=== PATIENT | male | born 1935 | race Caucasian/White ===

== ENCOUNTER 2023-11-29 08:33 | Emergency (ER) | payer MEDICARE ==
[2023-11-29 09:50] LABS: #Basophils 0.04 10x3/uL (0.0-0.2); %Basophils 0.3 % (0.0-1.0); %Eosinophils 2.6 % (0.0-10.0); %Lymphocytes 10.9 % (21.0-51.0); %Monocytes 6.7 % (0.0-10.0); %Neutrophils 78.9 % (42.0-75.0); Hematocrit 35.6 % (42.0-52.0); Mean Corpuscular HGB CONC 33.7 g/dL (32.0-36.0); Mean Corpuscular Hemoglobin 29.3 pg (27.0-31.0); Mean Platelet Volume 9.6 fL (7.4-10.4); Platelet Count 329 10x3/uL (130-400); RBC Distribution Width 13.9 % (11.5-14.5); Red Blood Cell (RBC) Count 4.09 mill/uL (4.70-6.10)
[2023-11-29 10:05] LABS: ALT (SGPT) 29 U/L (8-55); AST (SGOT) 55 U/L (5-34); Albumin 2.7 g/dL (3.4-4.8); Alkaline Phosphatase 143 U/L (40-110); Anion Gap 17 mmol/L (10-20); BUN (Urea Nitrogen) 16 mg/dL (8.4-25.7); Bilirubin, Total 0.6 mg/dL (0.2-1.2); Calc. Creatinine Clearance 0 mL/min (70-130); Carbon Dioxide 22 mmol/L (23-31); Chloride 100 mmol/L (98-107); Estimated GFR 47; Globulin 4.6 g/dL (2.4-3.5); Glucose 218 mg/dL (83-110); Potassium 4.3 mmol/L (3.5-5.1); Protein, Total 7.3 g/dL (5.8-8.1); Sodium 135 mmol/L (136-145)
[2023-11-29 10:09] LABS: Troponin I 0.017 ng/mL (< 0.028)
[2023-11-29] MEDS ORDERED: Ondansetron PF 4 MG/2 ML Vial ONE (10:46)
[2023-11-29 11:41] LABS: Bacteria/HPF Rare-Few HPF (None Seen); Bilirubin Negative (Negative); Blood, Urine Negative (Negative); CAUTI Indications for Culture Alt mental st,lethar; Clarity Clear (Clear); Glucose, Urine (Dipstick) Normal (Negative); Ketone, Urine Negative (Negative); Leukocyte 75 Leu/uL (Negative); Nitrite Negative (Negative); Protein, Urine (Dipstick) 20 mg/dL (Neg-Trace); RBC/HPF 0-3 HPF (0-3); Specific Gravity, Urine 1.015 (1.002-1.036); Squamous Epithelial 0-3 HPF (0-3); Urobilinogen Normal mg/dL (Less than 2); pH, Urine 5.5 (5.0-9.0)
[2023-11-29 11:42] LABS: Urine Culture Reflex No No
[2023-11-29] MEDS ORDERED: Iopamidol-370 76% 500 ML MDV (1 ML CHARGE) ONE (12:16)
== END 2023-11-29 13:39 | disposition home or self-care (01) ==
LOC: ERS 08:33
DX: C18.9 Malignant neoplasm of colon, unspecified (principal); Z55.6 Problems related to health literacy
CPT/HCPCS: 74177; 80053; 81001; 82550; 83690; 84484; 85025; 93005; J2405; Q9967; 96374

== ENCOUNTER 2023-12-18 08:15 | Day surgery (SDC) | payer MEDICARE, OTHER ==
[2023-12-18 09:00] LABS: INR-International Normal Ratio 1.1; Prothrombin Time 13.9 sec (12.0-14.7)
[2023-12-18 09:01] LABS: PTT 30.3 sec (22.9-36.1)
[2023-12-18 09:40] VITALS: BP 210/95; TEMP 97.2
[2023-12-18] MEDS ORDERED: fentaNYL 50 mcg/mL 1 mL Vial ONE (09:47)
[2023-12-18] MEDS ORDERED: Lidocaine 1% w/Epinephrine 1:100K 20 ML VIAL ONE (09:47)
[2023-12-18] MEDS ORDERED: Midazolam HCl 2 mg/2 ml Vial ONE (09:47)
[2023-12-18] MEDS ORDERED: Lidocaine 1% PF 5 ML VIAL ONE (09:47)
[2023-12-18] MEDS ORDERED: Sodium Bicarbonate 2.5 MEQ/5 ML SDV ONE (09:47)
== END 2023-12-18 13:00 | disposition home or self-care (01) ==
LOC: CT 08:15
PROVIDERS: ATTEND Internal Medicine Hematology & Oncology
PROC: 0F923ZX Drainage of Left Lobe Liver, Percutaneous Approach, Diagnostic (ICD-10-PCS; principal; 2023-12-18)
DX: C18.6 Malignant neoplasm of descending colon (principal); C78.7 Secondary malignant neoplasm of liver and intrahepatic bile duct
CPT/HCPCS: 47000; 77012; 85610; 85730; 88333; 88334; J2250; J3010; 81479; 88307; 88341; 88342; 88361; 88377; 99152; 99153

== ENCOUNTER 2024-01-08 08:35 | Outpatient (CLI) | payer MEDICARE | END 2024-01-08 08:36 | disposition home or self-care (01) | LOC: CT 08:35 | PROVIDERS: ATTEND Internal Medicine Hematology & Oncology | DX: C18.6 Malignant neoplasm of descending colon (principal); C78.7 Secondary malignant neoplasm of liver and intrahepatic bile duct; J98.4 Other disorders of lung | CPT/HCPCS: 71260 ==

== ENCOUNTER 2024-01-09 06:46 | Day surgery (SDC) | payer MEDICARE ==
[2024-01-08 10:17] VITALS: BMI 20.6
[2024-01-09] MEDS ORDERED: EPINEPHrine 1 MG/ML VIAL ONE (08:02)
[2024-01-09] MEDS ORDERED: Bupivacaine 0.25% HCL 30 ML VIAL ONE (08:02)
[2024-01-09] MEDS ORDERED: Lidocaine 1% PF 5 ML VIAL ONE (08:23)
[2024-01-09] MEDS ORDERED: PROPOFOL 20 ML ONE (08:23)
[2024-01-09 08:25] LABS: #Basophils 0.07 10x3/uL (0.0-0.2); %Basophils 0.5 % (0.0-1.0); %Eosinophils 0.8 % (0.0-10.0); %Lymphocytes 11.3 % (21.0-51.0); %Monocytes 5.8 % (0.0-10.0); %Neutrophils 80.9 % (42.0-75.0); Hemoglobin 11.5 g/dL (14.0-18.0); Mean Corpuscular HGB CONC 32.9 g/dL (32.0-36.0); Mean Corpuscular Hemoglobin 28.8 pg (27.0-31.0); Mean Corpuscular Volume 87.7 fL (78.0-98.0); Platelet Count 519 10x3/uL (130-400); RBC Distribution Width 13.7 % (11.5-14.5); Red Blood Cell (RBC) Count 3.99 mill/uL (4.70-6.10)
[2024-01-09 08:43] LABS: Anion Gap 15 mmol/L (10-20); BUN (Urea Nitrogen) 10 mg/dL (8.4-25.7); Calc. Creatinine Clearance 40 mL/min (70-130); Calcium 9.3 mg/dL (7.8-10.44); Carbon Dioxide 21 mmol/L (23-31); Chloride 106 mmol/L (98-107); Estimated GFR 58; Glucose 123 mg/dL (83-110); Potassium 4.1 mmol/L (3.5-5.1); Sodium 138 mmol/L (136-145)
[2024-01-09] MEDS ORDERED: CEFAZOLIN 2 GM VIAL ONE (09:07)
[2024-01-09] MEDS ORDERED: Sodium Chloride 0.9% 100 ML ONE (09:08)
[2024-01-09] MEDS ORDERED: fentaNYL PF 100 MCG/2 ML SYRINGE ONE (09:15)
[2024-01-09] MEDS ORDERED: PHENYLEPHRINE-NS 100 MCG/ML 10 ML SYRINGE ONE (09:33)
[2024-01-09] MEDS ORDERED: Ondansetron PF 4 MG/2 ML Vial ONE (09:54)
== END 2024-01-09 11:30 | disposition home or self-care (01) ==
LOC: SDC 06:46
PROVIDERS: ATTEND Surgery
PROC: 0HB1XZZ Excision of Face Skin, External Approach (ICD-10-PCS; principal; 2024-01-09)
DX: C44.309 Unspecified malignant neoplasm of skin of other parts of face (principal); C18.9 Malignant neoplasm of colon, unspecified; C79.9 Secondary malignant neoplasm of unspecified site
CPT/HCPCS: 11642; 13132; 36561; 71045; 80048; 85025; 93005; C1788; J0171; J0665; J1642; J2405; J2704; J3490; 88305; 93010

== ENCOUNTER 2024-04-09 07:31 | Outpatient (CLI) | payer MEDICARE | END 2024-04-09 07:32 | disposition home or self-care (01) | LOC: CT 07:31 | PROVIDERS: ATTEND Internal Medicine Hematology & Oncology | DX: C18.6 Malignant neoplasm of descending colon (principal); K76.9 Liver disease, unspecified; N40.0 Benign prostatic hyperplasia without lower urinary tract symptoms; N32.9 Bladder disorder, unspecified | CPT/HCPCS: 71260; 74177 ==

== ENCOUNTER 2024-05-06 10:33 | Inpatient (IN) | payer MEDICARE ==
[2024-05-06 11:25] LABS: Hematocrit 31.3 % (42.0-52.0); Hemoglobin 10.1 g/dL (14.0-18.0); Mean Corpuscular HGB CONC 32.3 g/dL (32.0-36.0); Mean Corpuscular Hemoglobin 28.9 pg (27.0-31.0); Mean Corpuscular Volume 89.7 fL (78.0-98.0); Mean Platelet Volume 10.7 fL (7.4-10.4); Platelet Count 78 10x3/uL (130-400); RBC Distribution Width 18.5 % (11.5-14.5); Red Blood Cell (RBC) Count 3.49 mill/uL (4.70-6.10)
[2024-05-06 11:34] LABS: ALT (SGPT) 67 U/L (8-55); AST (SGOT) 96 U/L (5-34); Albumin 2.3 g/dL (3.4-4.8); Alkaline Phosphatase 230 U/L (40-110); Anion Gap 21 mmol/L (10-20); BUN (Urea Nitrogen) 66 mg/dL (8.4-25.7); Bilirubin, Total 3.3 mg/dL (0.2-1.2); CK (CPK) 1293 U/L (30-200); Calc. Creatinine Clearance 0 mL/min (70-130); Calcium 7.8 mg/dL (7.8-10.44); Carbon Dioxide 15 mmol/L (23-31); Chloride 118 mmol/L (98-107); Estimated GFR 28; Globulin 2.6 g/dL (2.4-3.5); Glucose 236 mg/dL (83-110); Protein, Total 4.9 g/dL (5.8-8.1); Sodium 150 mmol/L (136-145)
[2024-05-06 11:35] LABS: INR-International Normal Ratio 2.6; Prothrombin Time 27.9 sec (12.0-14.7)
[2024-05-06 11:36] LABS: PTT 30.9 sec (22.9-36.1)
[2024-05-06 12:20] LABS: Band 19 % (5-11); Burr Cells SLIGHT = 2-5 cells HPF (0-1); Dohle Bodies SLIGHT; Giant Platelets 0.9 % (0-5); Large Platelets 7.2 % (0-5); Lymphocytes 8 % (21-51); Metamyelocyte 5 % (0-0); Monocytes 9 % (0-10); Myelocyte 2 % (0-0); Neutrophil 55 % (42-75); Nucleated RBC (Manual Ct) 1 % (0); Platelet Adequacy Comment Platelets Decreased; Polychromasia SLIGHT = 2-3 cells HPF (0-2); Promyelocytes 1 % (0-0); Toxic Granulation MODERATE
[2024-05-06] MEDS ORDERED: cefTRIAXone (ROCEPHIN) 2 GM VIAL ONE (12:25)
[2024-05-06] MEDS ORDERED: Sodium Chloride 0.9% 100 ML ONE (12:25)
[2024-05-06 12:31] LABS: Bacteria/HPF None Seen HPF (None Seen); Bilirubin 1+ (Negative); Blood, Urine 3+ (Negative); CAUTI Indications for Culture Alt mental st,lethar; Clarity Turbid (Clear); Glucose, Urine (Dipstick) 100 mg/dL (Negative); Ketone, Urine 10 mg/dL (Negative); Leukocyte Negative Leu/uL (Negative); Nitrite Negative (Negative); Protein, Urine (Dipstick) 50 mg/dL (Neg-Trace); RBC/HPF 0-3 HPF (0-3); Specific Gravity, Urine 1.022 (1.002-1.036); Squamous Epithelial 0-3 HPF (0-3); Urobilinogen Normal mg/dL (Less than 2); pH, Urine 5.5 (5.0-9.0)
[2024-05-06 12:39] LABS: Urine Culture Reflex No No
[2024-05-06 14:52] LABS: Lactic Acid 4.96 mmol/L (0.5-2.2)
[2024-05-06] MEDS ORDERED: Bisacodyl 5 MG TAB PO PRN (15:12)
[2024-05-06] MEDS ORDERED: Acetaminophen 325 MG TAB PO PRN (15:12)
[2024-05-06] MEDS ORDERED: Senokot S 8.6-50 MG TAB PO PRN (15:12)
[2024-05-06] MEDS ORDERED: Acetaminophen 650 MG Suppository PR PRN (15:12)
[2024-05-06] MEDS ORDERED: Ondansetron ODT 4 MG TAB PO PRN (15:12)
[2024-05-06] MEDS ORDERED: Ondansetron PF 4 MG/2 ML Vial IVP PRN (15:12)
[2024-05-06] MEDS ORDERED: Dextrose 5% in Water 1,000 ML IV SCH (15:15)
[2024-05-06] MEDS ORDERED: Vancomycin Dose by Levels Sliding Scale (Wt <71) FS SCH (15:30)
[2024-05-06] MEDS ORDERED: Vancomycin 1 GM/200 ML (FROZEN) BAG ONE (16:52)
[2024-05-06] MEDS: Vancomycin 1 GM in Premix 1 BAG IVPB SCH (17:11)
[2024-05-06 18:34] VITALS: BMI 16.6
[2024-05-06] MEDS: Cefepime 1 GM in Sodium Chloride 0.9% 100 ML IVPB SCH ×2 (18:48→20:50)
[2024-05-06 19:55] LABS: Magnesium 2.3 mg/dL (1.6-2.6)
[2024-05-06] MEDS: Famotidine/PF 20 mg/2ml Vial SLOW IVP SCH (20:51)
[2024-05-06] MEDS: Sodium Chloride 0.45% 1,000 ML IV SCH (20:51)
[2024-05-06] MEDS ORDERED: Vancomycin 1 GM in Sodium Chloride 0.9% 250 ML 300 ML IVPB SCH (21:00)
[2024-05-06 22:19] LABS: Anion Gap 25 mmol/L (10-20); BUN (Urea Nitrogen) 73 mg/dL (8.4-25.7); Calc. Creatinine Clearance 18 mL/min (70-130); Carbon Dioxide 10 mmol/L (23-31); Chloride 122 mmol/L (98-107); Estimated GFR 28; Glucose 195 mg/dL (83-110); Potassium 3.7 mmol/L (3.5-5.1); Sodium 153 mmol/L (136-145)
[2024-05-07] MEDS: Sodium Bicarb 50 MEQ/50 ML Abboject 8.4% SYRINGE IVP SCH (00:58)
[2024-05-07] MEDS: Sodium Bicarb 50 mEq/50 ML VIAL IVP SCH ×2 (00:58→01:09)
[2024-05-07 01:15] LABS: Lactic Acid 2.28 mmol/L (0.5-2.2)
[2024-05-07 03:51] LABS: Hematocrit 28.6 % (42.0-52.0); Hemoglobin 9.5 g/dL (14.0-18.0); Mean Corpuscular HGB CONC 33.2 g/dL (32.0-36.0); Mean Corpuscular Hemoglobin 28.7 pg (27.0-31.0); Mean Corpuscular Volume 86.4 fL (78.0-98.0); Platelet Count 53 10x3/uL (130-400); RBC Distribution Width 18.1 % (11.5-14.5); Red Blood Cell (RBC) Count 3.31 mill/uL (4.70-6.10)
[2024-05-07 04:06] LABS: ALT (SGPT) 58 U/L (8-55); AST (SGOT) 70 U/L (5-34); Alkaline Phosphatase 177 U/L (40-110); Anion Gap 15 mmol/L (10-20); BUN (Urea Nitrogen) 67 mg/dL (8.4-25.7); Bilirubin, Total 2.4 mg/dL (0.2-1.2); CK (CPK) 640 U/L (30-200); Calc. Creatinine Clearance 22 mL/min (70-130); Calcium 7.3 mg/dL (7.8-10.44); Carbon Dioxide 20 mmol/L (23-31); Chloride 121 mmol/L (98-107); Estimated GFR 37; Globulin 2.4 g/dL (2.4-3.5); Glucose 180 mg/dL (83-110); Potassium 3.1 mmol/L (3.5-5.1); Protein, Total 4.4 g/dL (5.8-8.1); Sodium 153 mmol/L (136-145)
[2024-05-07 04:37] LABS: Anisocytosis SLIGHT = 6-15 cells HPF (0-5); Band 16 % (5-11); Burr Cells SLIGHT = 2-5 cells HPF (0-1); Dohle Bodies SLIGHT; Elliptocytes SLIGHT = 2-5 cells HPF (0-1); Large Platelets 4.7 % (0-5); Lymphocytes 4 % (21-51); Metamyelocyte 4 % (0-0); Microcytosis SLIGHT = 6-15 cells HPF (0-5); Monocytes 16 % (0-10); Myelocyte 2 % (0-0); Neutrophil 59 % (42-75); Nucleated RBC (Manual Ct) 1 % (0); Platelet Adequacy Comment Platelets Decreased; Poikilocytosis SLIGHT = 6-15 cells HPF (0-5); Polychromasia SLIGHT = 2-3 cells HPF (0-2); Target Cells SLIGHT = 2-5 cells HPF (0-1); Toxic Granulation MODERATE
[2024-05-07 09:41] VITALS: BMI 16.6
[2024-05-07] MEDS: Sodium Chloride 0.45% 1,000 ML IV SCH (10:06)
[2024-05-07] MEDS: Potassium Chloride 20 MEQ TAB PO SCH (10:07)
[2024-05-07 12:38] LABS: Vancomycin, Trough 10.3 ug/mL
[2024-05-07 13:20] LABS: Campy jejuni + coli by PCR Negative (Negative); STEC Shiga Toxin 1+2 Negative (Negative); Salmonella spp. by PCR Negative (Negative); Shigella spp + EIEC by PCR Negative (Negative)
[2024-05-07] MEDS: Vancomycin HCl 750 MG in Sodium Chloride 0.9% 250 ML 250 ML IVPB SCH (14:20)
[2024-05-07 16:43] LABS: Anion Gap 14 mmol/L (10-20); BUN (Urea Nitrogen) 62 mg/dL (8.4-25.7); Calc. Creatinine Clearance 24 mL/min (70-130); Calcium 7.4 mg/dL (7.8-10.44); Carbon Dioxide 19 mmol/L (23-31); Chloride 124 mmol/L (98-107); Estimated GFR 41; Glucose 147 mg/dL (83-110); Potassium 3.2 mmol/L (3.5-5.1); Sodium 154 mmol/L (136-145)
[2024-05-07] MEDS: Dextrose 5% w/ 20 mEq KCl 1,000 ML IV SCH (17:28)
[2024-05-07] MEDS: Famotidine/PF 20 mg/2ml Vial SLOW IVP SCH (20:17)
[2024-05-08 05:38] LABS: ALT (SGPT) 72 U/L (8-55); AST (SGOT) 92 U/L (5-34); Albumin 1.9 g/dL (3.4-4.8); Alkaline Phosphatase 188 U/L (40-110); Anion Gap 12 mmol/L (10-20); BUN (Urea Nitrogen) 51 mg/dL (8.4-25.7); Bilirubin, Total 2.3 mg/dL (0.2-1.2); CK (CPK) 719 U/L (30-200); Calc. Creatinine Clearance 25 mL/min (70-130); Calcium 7.4 mg/dL (7.8-10.44); Carbon Dioxide 18 mmol/L (23-31); Chloride 119 mmol/L (98-107); Estimated GFR 43; Globulin 2.3 g/dL (2.4-3.5); Glucose 194 mg/dL (83-110); Potassium 3.1 mmol/L (3.5-5.1); Protein, Total 4.2 g/dL (5.8-8.1); Sodium 146 mmol/L (136-145)
[2024-05-08 06:59] LABS: Anisocytosis SLIGHT = 6-15 cells HPF (0-5); Band 12 % (5-11); Hypochromia SLIGHT = 6-15 cells HPF (0-5); Lymphocytes 3 % (21-51); Macrocytosis SLIGHT = 6-15 cells HPF (0-5); Monocytes 2 % (0-10); Neutrophil 83 % (42-75); Platelet Adequacy Comment Platelets Decreased; Polychromasia SLIGHT = 2-3 cells HPF (0-2); Smudge Cells 6.1 %
[2024-05-08 07:03] LABS: Hematocrit 26.9 % (42.0-52.0); Hemoglobin 8.9 g/dL (14.0-18.0); Mean Corpuscular HGB CONC 33.3 g/dL (32.0-36.0); Mean Corpuscular Hemoglobin 29.3 pg (27.0-31.0); Mean Corpuscular Volume 87.8 fL (78.0-98.0); Platelet Count 37 10x3/uL (130-400); RBC Distribution Width 18.4 % (11.5-14.5); Red Blood Cell (RBC) Count 3.04 mill/uL (4.70-6.10)
[2024-05-08] MEDS: Bacitracin 1 PK TOP SCH (09:44)
[2024-05-08] MEDS: Megestrol Acetate 800 MG/20 ML UDCUP PO SCH (09:45)
[2024-05-08 10:37] LABS: Vancomycin, Trough 12.5 ug/mL
[2024-05-08] MEDS: Vancomycin HCl 750 MG in Sodium Chloride 0.9% 250 ML 250 ML IVPB SCH (12:11)
[2024-05-08] MEDS: Potassium Chloride 20 MEQ TAB PO SCH (12:11)
[2024-05-08] MEDS: Albumin 25% 25 GM (100 mL) BOT IVPB SCH (12:11)
[2024-05-09] MEDS: Potassium Chloride 20 MEQ in Dextrose 5% in Water 1,000 ML IV SCH (00:34)
[2024-05-09 05:52] LABS: Hematocrit 22.7 % (42.0-52.0); Hemoglobin 7.5 g/dL (14.0-18.0); Mean Corpuscular Hemoglobin 29.8 pg (27.0-31.0); Mean Corpuscular Volume 90.1 fL (78.0-98.0); Platelet Count 25 10x3/uL (130-400); RBC Distribution Width 19.2 % (11.5-14.5); Red Blood Cell (RBC) Count 2.52 mill/uL (4.70-6.10)
[2024-05-09 06:17] LABS: Anisocytosis SLIGHT = 6-15 cells HPF (0-5); Band 5 % (5-11); Hypochromia SLIGHT = 6-15 cells HPF (0-5); Lymphocytes 7 % (21-51); Monocytes 5 % (0-10); Myelocyte 2 % (0-0); Neutrophil 79 % (42-75); Nucleated RBC (Manual Ct) 1 % (0); Platelet Adequacy Comment Platelets Decreased; Polychromasia SLIGHT = 2-3 cells HPF (0-2); Promyelocytes 1 % (0-0); Tear Drops SLIGHT = 2-5 cells HPF (0-1); Toxic Granulation SLIGHT
[2024-05-09 06:20] LABS: Anion Gap 11 mmol/L (10-20); BUN (Urea Nitrogen) 31 mg/dL (8.4-25.7); Calc. Creatinine Clearance 33 mL/min (70-130); Carbon Dioxide 17 mmol/L (23-31); Chloride 121 mmol/L (98-107); Estimated GFR 60; Glucose 161 mg/dL (83-110); Potassium 2.7 mmol/L (3.5-5.1); Sodium 146 mmol/L (136-145)
[2024-05-09 09:50] LABS: Vancomycin, Trough 11.2 ug/mL
[2024-05-09] MEDS: Vancomycin HCl 500 MG in Sodium Chloride 0.9% 100 ML IV SCH (14:21)
[2024-05-09] MEDS: Potassium Chloride 20 MEQ TAB PO SCH ×2 (14:27→14:50)
[2024-05-09] MEDS: Potassium Chloride 40 MEQ in Dextrose 5% in Water 1,000 ML IV SCH (15:47)
[2024-05-09] MEDS: Potassium Bicarbonate/Cit Ac 20 MEQ TAB PER TUBE SCH (15:49)
[2024-05-10 05:30] LABS: Hematocrit 27.3 % (42.0-52.0); Hemoglobin 8.6 g/dL (14.0-18.0); Mean Corpuscular HGB CONC 31.5 g/dL (32.0-36.0); Mean Corpuscular Hemoglobin 29.2 pg (27.0-31.0); Mean Corpuscular Volume 92.5 fL (78.0-98.0); Platelet Count 44 10x3/uL (130-400); RBC Distribution Width 20.5 % (11.5-14.5); Red Blood Cell (RBC) Count 2.95 mill/uL (4.70-6.10)
[2024-05-10 05:31] LABS: ALT (SGPT) 59 U/L (8-55); AST (SGOT) 58 U/L (5-34); Albumin 3.1 g/dL (3.4-4.8); Alkaline Phosphatase 149 U/L (40-110); Anion Gap 14 mmol/L (10-20); BUN (Urea Nitrogen) 22 mg/dL (8.4-25.7); Bilirubin, Total 2.3 mg/dL (0.2-1.2); Calc. Creatinine Clearance 39 mL/min (70-130); Calcium 8.3 mg/dL (7.8-10.44); Carbon Dioxide 10 mmol/L (23-31); Chloride 127 mmol/L (98-107); Estimated GFR 73; Globulin 1.8 g/dL (2.4-3.5); Glucose 138 mg/dL (83-110); Potassium 3.1 mmol/L (3.5-5.1); Protein, Total 4.9 g/dL (5.8-8.1); Sodium 148 mmol/L (136-145)
[2024-05-10 06:39] LABS: Anisocytosis SLIGHT = 6-15 cells HPF (0-5); Band 2 % (5-11); Lymphocytes 6 % (21-51); Macrocytosis SLIGHT = 6-15 cells HPF (0-5); Monocytes 3 % (0-10); Neutrophil 89 % (42-75); Nucleated RBC (Manual Ct) 1 % (0); Platelet Adequacy Comment Platelets Decreased; Polychromasia SLIGHT = 2-3 cells HPF (0-2); Smudge Cells 2.9 %
[2024-05-10] MEDS ORDERED: Dextrose 5% in Water 1,000 ML IV SCH (13:45)
[2024-05-10] MEDS: SODIUM BICARBONATE IV SCH (14:02)
[2024-05-10] MEDS: WATER IV SCH (14:02)
[2024-05-10] MEDS: DEXTROSE 5% IV SCH (14:02)
[2024-05-10] MEDS: POTASSIUM CHLORIDE IV SCH (14:02)
[2024-05-11 05:52] LABS: Anion Gap 13 mmol/L (10-20); BUN (Urea Nitrogen) 22 mg/dL (8.4-25.7); Calc. Creatinine Clearance 34 mL/min (70-130); Calcium 8.6 mg/dL (7.8-10.44); Carbon Dioxide 12 mmol/L (23-31); Chloride 128 mmol/L (98-107); Estimated GFR 63; Glucose 222 mg/dL (83-110); Potassium 3.3 mmol/L (3.5-5.1); Sodium 150 mmol/L (136-145)
[2024-05-11 05:53] LABS: Hematocrit 27.7 % (42.0-52.0); Hemoglobin 8.7 g/dL (14.0-18.0); Mean Corpuscular HGB CONC 31.4 g/dL (32.0-36.0); Mean Corpuscular Hemoglobin 29.1 pg (27.0-31.0); Mean Corpuscular Volume 92.6 fL (78.0-98.0); Platelet Count 54 10x3/uL (130-400); RBC Distribution Width 21.2 % (11.5-14.5); Red Blood Cell (RBC) Count 2.99 mill/uL (4.70-6.10)
[2024-05-11 06:43] LABS: Anisocytosis SLIGHT = 6-15 cells HPF (0-5); Band 1 % (5-11); Lymphocytes 1 % (21-51); Monocytes 4 % (0-10); Neutrophil 94 % (42-75); Platelet Adequacy Comment Platelets Decreased; Polychromasia SLIGHT = 2-3 cells HPF (0-2); Schistocytes SLIGHT = 2-5 cells HPF (0-1); Tear Drops SLIGHT = 2-5 cells HPF (0-1)
[2024-05-11] MEDS ORDERED: Potassium Chloride 40 MEQ in Dextrose 5% in Water 1,000 ML IV SCH (09:00)
[2024-05-11] MEDS: WATER IV SCH (09:38)
[2024-05-11] MEDS: DEXTROSE 5% IV SCH (09:38)
[2024-05-11] MEDS: POTASSIUM CHLORIDE IV SCH (09:38)
[2024-05-11] MEDS: SODIUM BICARBONATE IV SCH (09:38)
[2024-05-12 05:49] LABS: Anion Gap 8 mmol/L (10-20); BUN (Urea Nitrogen) 22 mg/dL (8.4-25.7); Calc. Creatinine Clearance 32 mL/min (70-130); Calcium 7.9 mg/dL (7.8-10.44); Carbon Dioxide 17 mmol/L (23-31); Chloride 127 mmol/L (98-107); Estimated GFR 59; Glucose 210 mg/dL (83-110); Magnesium 1.8 mg/dL (1.6-2.6); Potassium 4.4 mmol/L (3.5-5.1); Sodium 148 mmol/L (136-145)
[2024-05-12 05:52] LABS: Phosphorus 1.5 mg/dL (2.3-4.7)
[2024-05-12 06:16] LABS: Hematocrit 25.1 % (42.0-52.0); Hemoglobin 8.2 g/dL (14.0-18.0); Mean Corpuscular HGB CONC 32.7 g/dL (32.0-36.0); Mean Corpuscular Hemoglobin 29.6 pg (27.0-31.0); Mean Corpuscular Volume 90.6 fL (78.0-98.0); Platelet Count 64 10x3/uL (130-400); RBC Distribution Width 22.2 % (11.5-14.5); Red Blood Cell (RBC) Count 2.77 mill/uL (4.70-6.10)
[2024-05-12 06:53] LABS: Anisocytosis SLIGHT = 6-15 cells HPF (0-5); Band 11 % (5-11); Eosinophils 1 % (0-10); Hypochromia SLIGHT = 6-15 cells HPF (0-5); Lymphocytes 10 % (21-51); Monocytes 3 % (0-10); Neutrophil 71 % (42-75); Platelet Adequacy Comment Platelets Decreased; Polychromasia SLIGHT = 2-3 cells HPF (0-2)
[2024-05-12] MEDS: PHOS-NAK 1 PKT PACK PO SCH (08:23)
[2024-05-13 05:28] LABS: Hematocrit 23.2 % (42.0-52.0); Hemoglobin 7.5 g/dL (14.0-18.0); Mean Corpuscular HGB CONC 32.3 g/dL (32.0-36.0); Mean Corpuscular Volume 92.8 fL (78.0-98.0); Mean Platelet Volume 11.8 fL (7.4-10.4); Platelet Count 82 10x3/uL (130-400); RBC Distribution Width 23.1 % (11.5-14.5)
[2024-05-13 05:32] LABS: Anion Gap 10 mmol/L (10-20); BUN (Urea Nitrogen) 23 mg/dL (8.4-25.7); Calc. Creatinine Clearance 39 mL/min (70-130); Calcium 7.6 mg/dL (7.8-10.44); Carbon Dioxide 19 mmol/L (23-31); Chloride 120 mmol/L (98-107); Estimated GFR 75; Glucose 105 mg/dL (83-110); Phosphorus 1.7 mg/dL (2.3-4.7); Potassium 4.7 mmol/L (3.5-5.1); Sodium 144 mmol/L (136-145)
[2024-05-13 06:10] LABS: Anisocytosis MARKED = >30 cells HPF (0-5); Band 8 % (5-11); Lymphocytes 14 % (21-51); Macrocytosis MODERATE=16-30 cells HPF (0-5); Metamyelocyte 1 % (0-0); Monocytes 3 % (0-10); Neutrophil 74 % (42-75); Ovalocytes SLIGHT = 2-5 cells HPF (0-1); Platelet Adequacy Comment Platelets Decreased; Polychromasia MARKED = >4 cells HPF (0-2); Reactive Lymphocytes 1 % (0-10)
[2024-05-13 07:10] LABS: Large Platelets 2.9 % (0-5); Toxic Granulation SLIGHT
[2024-05-13] MEDS: SODIUM BICARBONATE IV SCH (10:09)
[2024-05-13] MEDS: DEXTROSE 5% IV SCH (10:09)
[2024-05-13] MEDS: POTASSIUM CHLORIDE IV SCH (10:09)
[2024-05-13] MEDS: WATER IV SCH (10:09)
[2024-05-14 18:06] VITALS: BP 128/71; TEMP 98
== END 2024-05-14 16:40 | DRG 871 ==
LOC: ERS 10:33 → ERHOLD 14:31 → MSONC 17:58
PROVIDERS: ADMIT Internal Medicine; ATTEND Family Medicine
DX: A41.9 Sepsis, unspecified organism (principal); G93.41 Metabolic encephalopathy; E87.1 Hypo-osmolality and hyponatremia; N17.9 Acute kidney failure, unspecified; E87.20 Acidosis, unspecified; R64 Cachexia; E87.0 Hyperosmolality and hypernatremia; C78.7 Secondary malignant neoplasm of liver and intrahepatic bile duct; Z68.1 Body mass index [BMI] 19.9 or less, adult; Z66 Do not resuscitate; C19 Malignant neoplasm of rectosigmoid junction; N39.0 Urinary tract infection, site not specified; M62.82 Rhabdomyolysis; D61.818 Other pancytopenia; Z51.5 Encounter for palliative care; E86.0 Dehydration; N40.0 Benign prostatic hyperplasia without lower urinary tract symptoms; E87.6 Hypokalemia; R65.20 Severe sepsis without septic shock; N18.9 Chronic kidney disease, unspecified; D64.9 Anemia, unspecified; L89.152 Pressure ulcer of sacral region, stage 2; E83.39 Other disorders of phosphorus metabolism; R74.01 Elevation of levels of liver transaminase levels; Z85.828 Personal history of other malignant neoplasm of skin; Z90.79 Acquired absence of other genital organ(s); Z92.21 Personal history of antineoplastic chemotherapy; Z79.899 Other long term (current) drug therapy
CPT/HCPCS: 36415; 51701; 70450; 71045; 72125; 74176; 80048; 80053; 80202; 81001; 82550; 83605; 83735; 84100; 85025; 85610; 85730; 87040; 87086; 87505; 93005; 94760; 96374; 97139; J0692; J0696; J1642; J3370; J3370-JW; J3480; J3490; J7050; J7070; P9047